=== PATIENT | female | born 1985 | race Two or more races ===

== ENCOUNTER 2017-05-31 15:56 | Emergency (ER) | payer BC ==
[~2017-05-31] VITALS: Ht 157.5 cm; Wt 81.6 kg
[~2017-05-31 15:56] MED LIST: ALPR2TAB2 PO; DEXT10TA7 PO
[2017-05-31] MEDS ORDERED: KETOROLAC TROMETHAMINE INJ 60 MG/2 ML VIAL IM ONE ×2 (16:48→17:00)
[2017-05-31] MEDS ORDERED: DEXAMETHASONE SOD PHOSPHATE 10 MG/ML VIAL ONE (16:48)
[2017-05-31] MEDS ORDERED: HYDROCODONE/APAP 5/325MG 1 EACH TABLET ONE ×2 (16:48→18:42)
[2017-05-31] MEDS ORDERED: HYDROCODONE/APAP 5/325MG 1 EACH TABLET PO ONE ×2 (17:00→19:00)
[2017-05-31] MEDS ORDERED: DEXAMETHASONE SOD PHOSPHATE 4 MG/ML VIAL IM ONE (17:00)
[2017-05-31 18:38] VITALS: BP 124/70
== END 2017-05-31 18:39 | disposition home or self-care (01) ==
LOC: ER 15:58
DX: S39.012A Strain of muscle, fascia and tendon of lower back, initial encounter (principal); M54.32 Sciatica, left side; F32.9 Major depressive disorder, single episode, unspecified; W18.39XA Other fall on same level, initial encounter; Y93.89 Activity, other specified; Y92.89 Other specified places as the place of occurrence of the external cause; Y99.8 Other external cause status
CPT/HCPCS: 72100; 72220; 96372 ×2; 99284; A4606; J1100; J1885; Z7610